=== PATIENT | female | born 1980 | race Caucasian/White ===

== ENCOUNTER 2021-12-21 03:02 | Emergency (ER) | payer OTHER ==
[~2021-12-21] VITALS: Ht 154.9 cm; Wt 79.4 kg
[2021-12-21 03:02] VITALS: BP 125/89
[2021-12-21 04:32] LABS: Urine Bacteria NONE SEEN /hpf (None Seen); Urine Blood 3+ /uL (Negative); Urine Mucus FEW (None Seen); Urine Specific Gravity 1.017 (1.001-1.035); Urine WBC 285 /hpf (0 - 5); Urine WBC Clumps PRESENT /hpf (None Seen)
[2021-12-21] MEDS ORDERED: NITROFURANTOIN 100 mg CAP PO ONE (04:45)
[2021-12-21] MEDS ORDERED: NITR-87 PO (05:55)
== END 2021-12-21 06:04 | disposition home or self-care (01) ==
LOC: ER 03:02
DX: N39.0 Urinary tract infection, site not specified (principal); Z88.0 Allergy status to penicillin; Z88.8 Allergy status to other drugs, medicaments and biological substances
CPT/HCPCS: 81001; 81025

== ENCOUNTER 2022-04-16 12:19 | Emergency (ER) | payer OTHER ==
[~2022-04-16] VITALS: Ht 154.9 cm; Wt 77.3 kg
[~2022-04-16 12:19] MED LIST: NITR-87 PO
[2022-04-16 14:44] LABS: Basophils # (auto) 0.1 10 ^3/uL (0-0.2); Basophils % (auto) 0.7 % (0.0-2.0); Eosinophils # (auto) 0.1 10 ^3/uL (0-0.8); Eosinophils % (auto) 0.7 % (0.0-7.0); Hematocrit 42.9 % (36.0-46.0); Hemoglobin 14.2 g/dL (12.2-16.2); Lymphocytes # (auto) 0.9 10 ^3/uL (0.4-5.4); Lymphocytes % (auto) 11.6 % (10.0-50.0); Mean Corpuscular Hemoglobin 29.4 pg (28.0-32.0); Mean Corpuscular Hgb Conc. 33.1 g/dL (32.0-36.0); Mean Corpuscular Volume 88.8 fL (80.0-100.0); Monocytes # (auto) 0.8 10 ^3/uL (0-1.3); Monocytes % (auto) 9.5 % (0.0-12.0); Neutrophils # (auto) 6.2 10 ^3/uL (1.6-8.6); Neutrophils % (auto) 77.5 % (37.0-80.0); Red Blood Cells 4.83 10^6/uL (4.0-5.20); Red Cell Distribution Width 13.7 % (11.8-14.3)
[2022-04-16 14:46] VITALS: BP 129/80
[2022-04-16 15:00] LABS: Albumin 3.5 g/dL (3.4-5.0); Calcium 8.6 mg/dL (8.5-10.1); Potassium 3.6 mmol/L (3.5-5.1)
[2022-04-16 15:03] LABS: BUN/Creatinine Ratio 11.4; Bilirubin, Total 0.3 mg/dL (0.2-1.0); Total Protein 7.6 g/dL (6.4-8.2)
[2022-04-16] MEDS ORDERED: ACET-1158 PO (15:22)
[2022-04-16] MEDS ORDERED: DOXY-332 PO (15:22)
[2022-04-16] MEDS ORDERED: cefTRIAXone 1GM/50ML D5W 50 ML IV ONE (15:30)
[2022-04-16] MEDS ORDERED: SODIUM CHLORIDE 0.9% 1,000 ML IV ONE (15:30)
[2022-04-16] MEDS ORDERED: IOHEXOL 350 MG/ML 100ML IJ ONE (16:23)
== END 2022-04-16 17:21 | disposition home or self-care (01) ==
LOC: ER 12:19
DX: U07.1 COVID-19 (principal); J06.9 Acute upper respiratory infection, unspecified
CPT/HCPCS: 36415; 71045; 71275; 80053; 84484; 85025; 85379; 87426; 93005; 96361; 96365; 99285; J0696; J7030; Q9967

== ENCOUNTER 2023-03-07 23:57 | Emergency (ER) | payer OTHER ==
[~2023-03-07] VITALS: Ht 154.9 cm; Wt 79.5 kg
[~2023-03-07 23:57] MED LIST changes: +ACET500T58 PO; +DOXY-448 PO
[2023-03-08 01:03] LABS: Basophils # (auto) 0.1 10 ^3/uL (0-0.2); Basophils % (auto) 0.8 % (0.0-2.0); Eosinophils # (auto) 0.1 10 ^3/uL (0-0.8); Eosinophils % (auto) 1.4 % (0.0-7.0); Hematocrit 41.4 % (36.0-46.0); Hemoglobin 14.2 g/dL (12.2-16.2); Lymphocytes % (auto) 19.8 % (10.0-50.0); Mean Corpuscular Hemoglobin 31.7 pg (28.0-32.0); Mean Corpuscular Hgb Conc. 34.3 g/dL (32.0-36.0); Mean Corpuscular Volume 92.4 fL (80.0-100.0); Monocytes # (auto) 0.7 10 ^3/uL (0-1.3); Monocytes % (auto) 7.2 % (0.0-12.0); Neutrophils % (auto) 70.8 % (37.0-80.0); Nucleated Red Blood Cells % 0.1 %; Red Blood Cells 4.48 10^6/uL (4.0-5.20); Red Cell Distribution Width 13.6 % (11.8-14.3); White Blood Cell 9.9 10^3/uL (4.4-10.8)
[2023-03-08 01:20] LABS: Albumin 3.3 g/dL (3.4-5.0); Calcium 8.2 mg/dL (8.5-10.1); Potassium 3.5 mmol/L (3.5-5.1)
[2023-03-08 01:22] LABS: BUN/Creatinine Ratio 14.5 (10.0-20.0)
[2023-03-08 01:24] LABS: Bilirubin, Total 0.4 mg/dL (0.2-1.0); Total Protein 7.3 g/dL (6.4-8.2)
[2023-03-08 03:37] LABS: Urine Bacteria NONE SEEN /hpf (None Seen); Urine Blood Negative /uL (Negative); Urine Mucus FEW (None Seen); Urine Specific Gravity 1.032 (1.001-1.035); Urine WBC 1 /hpf (0 - 5)
[2023-03-08] MEDS ORDERED: PERCOT PO (06:19)
[2023-03-08] MEDS ORDERED: CIPR-173 PO (06:19)
[2023-03-08 06:29] VITALS: BP 128/89
== END 2023-03-08 06:31 | disposition home or self-care (01) ==
LOC: ER 23:57
DX: R10.84 Generalized abdominal pain (principal); Z87.440 Personal history of urinary (tract) infections; Z88.0 Allergy status to penicillin
CPT/HCPCS: 36415; 74176; 80053; 81001; 83690; 85025